=== PATIENT | male | born 1965 | race Caucasian/White ===

== ENCOUNTER 2018-02-10 01:48 | Inpatient (IN) | payer OTHER ==
[~2018-02-10] VITALS: Ht 172.7 cm; Wt 105.5 kg
[~2018-02-10 01:48] MED LIST: CITA-48 PO; D-10TAB3 PO; HYDR-2768 PO; PALI156P IM; TRAZ100 PO
[2018-02-10 03:05] VITALS: BP 169/97; PULSE 86; RESP 18; TEMP 98.8; O2SAT 98
[2018-02-10] MEDS ORDERED: diphenhydrAMINE HCL 50 MG/ML VIAL - HS PRN IM (04:45)
[2018-02-10] MEDS ORDERED: diphenhydrAMINE HCL 50 MG CAP - HS PRN PO (04:45)
[2018-02-10] MEDS ORDERED: ALUMINUM/MAGNESIUM/SIMETH 30 ML CUP PO PRN (04:45)
[2018-02-10] MEDS ORDERED: hydrOXYzine HCL 50 MG TAB PO PRN (04:45)
[2018-02-10] MEDS ORDERED: MAGNESIUM HYDROXIDE SUSP 30 ML CUP PO PRN (04:45)
[2018-02-10] MEDS: NICOTINE 21 MG/24 HR PATCH T-DERMAL SCH (09:00)
[2018-02-10 11:03] LABS: BICARBONATE 26.6 MEQ/L (21.0-32.0); BLOOD UREA NITROGEN 14 MG/DL (7-18); CALCIUM 9.3 MG/DL (8.5-10.1); CHLORIDE 105 MEQ/L (98-107); CHOLESTEROL 187 MG/DL (120-200); CREATININE 0.98 MG/DL (0.60-1.30); GLOMERULAR FILTRATION RATE 81 ML/MIN (>89); GLUCOSE,RANDOM 113 MG/DL (74-106); SODIUM (NA) 139 MEQ/L (136-145)
[2018-02-10 11:07] LABS: CHOLESTEROL/ HDL RATIO 5.35 RATIO; HDL CHOLESTEROL 34.9 MG/DL (40.0-60.0); LDL CHOLESTEROL 108 MG/DL (0-99); TRIGLYCERIDES 223 MG/DL (42-150)
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
[2018-02-10 14:00] LABS: HEMOGLOBIN A1C 5.4 % (4.3-6.0)
--- NOTE | 2018-02-10 16:23 | PD.CONS ---
HPI Service [facility] Hospitalists Consult Requested By Psychiatric services Reason for Consult Medical management Primary Care Physician [facility] Diagnoses: History of Present Illness This is a 52-year-old male with a past medical history significant for hypertension, bipolar disorder, schizoaffective disorder and PTSD who was admitted to the inpatient psychiatric unit as a transfer from [facility] under Garcia act secondary to suicidal ideation with plan to either overdose on pills or poison himself with carbon monoxide. Hospitalist services have been consulted for medical management. Patient seen and examined. Patient has complaints of mild swelling and discomfort in the left eye that he states is secondary to a stye infection which he gets occasionally. He denies any vision changes. He denies any associated itching, pain or drainage He denies any fever or chills. Denies any chest pain or shortness of breath. Denies any nausea, vomiting or abdominal pain. He denies any urinary difficulties. He denies any diarrhea, constipation, melena or hematochezia. Review of Systems Except as stated in HPI: all other systems reviewed are Neg Past Family Social History Allergies: Coded Allergies: No Known Allergies (Verified , 01/14/14) Past Medical History Hypertension Bipolar disorder Schizoaffective disorder PTSD Past Surgical History Lumbar surgery 2 Reported Medications Invega Sustenna (Paliperidone Palmitate) 156 Mg/Ml Inj 156 Mg IM Q28D *FOR INTRAMUSCULAR USE ONLY* Trazodone Hcl (Trazodone HCl) 100 Mg Tab 200 Mg PO HS PRN Hctz (Hydrochlorothiazide) 25 Mg Tab 37.5 Mg PO DAILY TAKE 1 AND 1/2 TABS IN THE MORNING Citalopram Hydrobromide 40 Mg Tab 40 Mg PO DAILY D-1000 Extra Strength (Cholecalciferol) Tab 2 PO DAILY Active Ordered Medications Current Medications Medications (Trade) Dose Ordered Sig/Chanda Route Start Time Stop Time Status Last Admin (Tylenol) 650 mg Q4H PRN PO 02/10/18 04:45 (Milk Of Magnesia Liq) 30 ml DAILY PRN PO 02/10/18 04:45 (Mag-Al Plus Susp Liq) 30 ml Q6H PRN PO 02/10/18 04:45 (Habitrol 21 Mg Patch.24 Hr) 1 patch DAILY T-DERMAL 02/10/18 09:00 Miscellaneous Information 1 HS T-DERMAL 02/10/18 21:00 (Depakote Er) 1,500 mg HS PO 02/10/18 21:00 (Lithotabs) 300 mg DAILY PO 02/11/18 09:00 ([place] Carbonate) 600 mg HS PO 02/10/18 21:00 (Wellbutrin Sr) 150 mg DAILY PO 02/11/18 09:00 (Desyrel) 200 mg HS PO 02/10/18 21:00 Family History Mother, bipolar disorder Social History Patient reports tobacco use of a pack per day since the age of 17. He denies any alcohol consumption or illicit drug use. Physical Exam Vital Signs Vital Signs Date Time Temp Pulse Resp B/P (MAP) Pulse Ox O2 Delivery O2 Flow Rate FiO2 02/10/18 03:05 98.8 86 18 169/97 (121) 98 Physical Exam GENERAL: This is a well-nourished, well-developed male patient, in no apparent distress. Asleep but easily arousable to voice. Pleasant and calm. SKIN: No rashes, ecchymoses or lesions. Cool and dry. HEAD: Atraumatic. Normocephalic. No temporal or scalp tenderness. EYES: Pupils equal round and reactive. Extraocular motions intact. No scleral icterus. Mild edema noted left eye with conjunctival irritation. ENT: Nose without bleeding or purulent drainage. Throat without erythema, tonsillar hypertrophy or exudate. Uvula midline. Airway patent. NECK: Trachea midline. No lymphadenopathy. Supple, nontender, no meningeal signs. CARDIOVASCULAR: Regular rate and rhythm without murmurs, gallops, or rubs. RESPIRATORY: Clear to auscultation. Breath sounds equal bilaterally. No wheezes , rales, or rhonchi. GASTROINTESTINAL: Abdomen soft, non-tender, nondistended. No hepato-splenomegaly , or palpable masses. No guarding. MUSCULOSKELETAL: Extremities without clubbing or cyanosis. Trace BLE edema. No joint tenderness, effusion, or edema noted. No calf tenderness. NEUROLOGICAL: Awake and alert. Cranial nerves II through XII grossly intact. Motor and sensory grossly within normal limits. No focal neurologic findings appreciated. Normal speech. Laboratory Laboratory Tests Test 02/10/18 09:20 Blood Urea Nitrogen 14 Creatinine 0.98 Random Glucose 113 Calcium Level 9.3 Sodium Level 139 Potassium Level 4.2 Chloride Level 105 Carbon Dioxide Level 26.6 Anion Gap 7 Estimat Glomerular Filtration Rate 81 Hemoglobin A1c 5.4 Triglycerides Level 223 Cholesterol Level 187 LDL Cholesterol 108 HDL Cholesterol 34.9 Cholesterol/HDL Ratio 5.35 Valproic Acid (Depakene) Level 31 [place] Level 0.5 Result Diagram: 02/10/18 0920 Assessment and Plan Assessment and Plan 52-year-old male with a past medical history significant for hypertension, bipolar disorder, schizoaffective disorder and PTSD who was admitted to the inpatient psychiatric unit as a transfer from [facility] under Garcia act secondary to suicidal ideation with plan to either overdose on pills or poison himself with carbon monoxide. Hospitalist services have been consulted for medical management. Bipolar disorder Schizoaffective disorder PTSD Suicidal ideation -Management per psychiatric team Hypertension, not well controlled -Begin Norvasc 5 mg daily. Requested nursing staff update medication reconciliation. -Clonidine when necessary with parameters -Continue to monitor BP and adjust treatment accordingly Left eye stye -warm compresses 15mins on 4x/day -monitor Hypertriglyceridemia -Triglyceride level 223 -Discussed with patient starting statin therapy and patient is agreeable -Obtain LFT levels. If within normal limits, recommend beginning statin therapy -[facility]8 [facility] as well as monitor his LFTs Tobaccoism -Discussed smoking cessation -Offered patient nicotine patch but he declined DVT prophylaxis -Patient is ambulatory Thank you very kindly for this consultation. We'll continue to follow patient along with you. Discussed Condition With patient, nursing staff Tamia Means Feb 10, 2018 16:23
[2018-02-10] MEDS ORDERED: cloNIDine HCL 0.1 MG TAB PO PRN (16:30)
[2018-02-10] MEDS ORDERED: amLODIPine BESYLATE 5 MG TAB PO ONE (16:30)
[2018-02-10 16:54] LABS: DIRECT BILIRUBIN ADULT 0.1 MG/DL (0.0-0.2)
[2018-02-10 16:57] LABS: INDIRECT BILIRUBIN 0.4 MG/DL (0.0-0.8); TOTAL BILIRUBIN ADULT 0.5 MG/DL (0.2-1.0); TOTAL PROTEIN 7.8 GM/DL (6.4-8.2)
[2018-02-10 17:41] VITALS: BP 171/93; PULSE 85; RESP 18; TEMP 97.7; O2SAT 99
[2018-02-10] MEDS: REMOVE OLD NICOTINE PATCH T-DERMAL SCH (21:00)
[2018-02-10] MEDS: LITHIUM CARBONATE 300 MG CAP PO SCH (21:00)
[2018-02-10] MEDS: traZODone HCL 100 MG TAB PO SCH (21:00)
[2018-02-10] MEDS: DIVALPROEX SODIUM E.R. 500 MG TAB PO SCH (21:00)
[2018-02-11 05:12] VITALS: BP 137/78; PULSE 81; RESP 18; TEMP 98; O2SAT 99
[2018-02-11] MEDS: NICOTINE 21 MG/24 HR PATCH T-DERMAL SCH (09:00)
[2018-02-11] MEDS: amLODIPine BESYLATE 5 MG TAB PO SCH (09:00)
[2018-02-11] MEDS: buPROPion HCL 150 MG SUSTAINED RELEASE TAB PO SCH (09:21)
[2018-02-11] MEDS: LITHIUM CARBONATE 300 MG TAB PO SCH (09:22)
--- NOTE | 2018-02-11 10:58 | HHI.PYPN ---
Subjective Chief Complaint: suicidal ideation Remarks Patient was seen and case discussed with nursing. Patient is complaining of nightmares last night. He told nursing last night he had suicidal ideation but denies having some with my interview. Describes various stressors such as his relationship with his son. Affect is blunted. Mood remains depressed. Has auditory visual hallucinations Mental Status Examination Appearance: Appropriate Consciousness: Alert Orientation: x4 Motor Activity: Normal gait Speech: Unremarkable Language: Adequate Fund of Knowledge: Adequate Attention and Concentration: Adequate Memory: Unremarkable Mood: Sad Affect: Blunt Thought Process & Associations: Intact, Logical, Linear Thought Content: Appropriate Hallucination Type: None Delusion Type: None Suicidal Ideation: No Suicidal Plan: No Suicidal Intention: No Homicidal Ideation: No Homicidal Plan: No Homicidal Intention: No Insight: Adequate Judgment: Adequate Results Vitals/IOs Vital Signs Date Time Temp Pulse Resp B/P (MAP) Pulse Ox O2 Delivery O2 Flow Rate FiO2 02/11/18 05:12 98.0 81 18 137/78 (97) 99 Intake and Output 02/11/18 02/11/18 02/12/18 08:00 16:00 00:00 Intake Total 240 ml Balance 240 ml Assessment & Plan Problem List: (1) Bipolar 1 disorder, depressed, mild ICD Codes: F31.31 - Bipolar disorder, current episode depressed, mild Assessment & Plan Continue current treatment plan Justification for Cont. Inpt. Patient will decompensate in a less restrictive setting Request HC Surrog/Guard Advoc?: No Andrey Braun DO Feb 11, 2018 10:58
--- NOTE | 2018-02-11 11:18 | HHI.PR ---
Subjective Remarks Follow up on patient with HTN, eye lesion. Patient seen and examined. Patient states his eye feels better. Denies any complaints of vision changes, eye pain , tearing or itchiness. Denies any fever or chills. Denies any chest pain or shortness of breath. Denies any nausea, vomiting or abdominal pain. States he is urinating well. Denies any diarrhea or constipation. Objective Vitals Vital Signs Date Time Temp Pulse Resp B/P (MAP) Pulse Ox O2 Delivery O2 Flow Rate FiO2 02/11/18 05:12 98.0 81 18 137/78 (97) 99 02/10/18 17:41 97.7 85 18 171/93 (119) 99 I/O 02/10/18 02/10/18 02/10/18 02/11/18 02/11/18 02/11/18 07:00 15:00 23:00 07:00 15:00 23:00 Intake Total 240 ml Balance 240 ml Intake Oral 240 ml Result Diagram: 02/10/18 0920 Objective Remarks GENERAL: This is a well-nourished, well-developed male patient, in no apparent distress. Awake and alert. Witnessed ambulating in the unit without any difficulty. SKIN: Cool and dry. HEAD: Atraumatic. Normocephalic. EYES: Extraocular motions intact. No scleral icterus. Nodular lesion noted left upper eyelid, no evidence of infection. ENT: Nose without bleeding or purulent drainage. Airway patent. MMM. NECK: Trachea midline. CARDIOVASCULAR: Regular rate and rhythm without murmurs, gallops, or rubs. RESPIRATORY: Clear to auscultation. Breath sounds equal bilaterally. No wheezes , rales, or rhonchi. GASTROINTESTINAL: Abdomen soft, non-tender, nondistended. MUSCULOSKELETAL: Extremities without clubbing or cyanosis. Trace BLE edema. NEUROLOGICAL: Awake and alert. Cranial nerves II through XII grossly intact. Motor and sensory grossly within normal limits. No focal neurologic findings appreciated. Normal speech. PSYCHIATRIC: Appropriate mood and affect. Normal insight and judgment. Medications and IVs Current Medications Medications (Trade) Dose Ordered Sig/Chanda Route Start Time Stop Time Status Last Admin (Tylenol) 650 mg Q4H PRN PO 02/10/18 04:45 (Milk Of Magnesia Liq) 30 ml DAILY PRN PO 02/10/18 04:45 (Mag-Al Plus Susp Liq) 30 ml Q6H PRN PO 02/10/18 04:45 (Habitrol 21 Mg Patch.24 Hr) 1 patch DAILY T-DERMAL 02/10/18 09:00 Miscellaneous Information 1 HS T-DERMAL 02/10/18 21:00 (Depakote Er) 1,500 mg HS PO 02/10/18 21:00 02/10/18 21:00 (Lithotabs) 300 mg DAILY PO 02/11/18 09:00 02/11/18 09:22 ([place] Carbonate) 600 mg HS PO 02/10/18 21:00 02/10/18 21:00 (Wellbutrin Sr) 150 mg DAILY PO 02/11/18 09:00 02/11/18 09:21 (Desyrel) 200 mg HS PO 02/10/18 21:00 02/10/18 21:00 (Catapres) 0.1 mg Q6H PRN PO 02/10/18 16:30 (Norvasc) 5 mg DAILY PO 02/11/18 09:00 02/11/18 09:00 (Lipitor) 40 mg DAILY PO 02/12/18 09:00 (Benadryl) 50 mg HS PRN PO 02/11/18 21:00 A/P Assessment and Plan 52-year-old male with a past medical history significant for hypertension, bipolar disorder, schizoaffective disorder and PTSD who was admitted to the inpatient psychiatric unit as a transfer from [facility] under Garcia act secondary to suicidal ideation with plan to either overdose on pills or poison himself with carbon monoxide. Hospitalist services have been consulted for medical management. Bipolar disorder Schizoaffective disorder PTSD Suicidal ideation -Management per psychiatric team Hypertension -BP better controlled since beginning Norvasc 5 mg daily, continue -medication reconciliation pending, discussed with nursing staff -Clonidine when necessary with parameters -Continue to monitor BP and adjust treatment accordingly Left eye lesion, suspect chalazion -No evidence of infection, asymptomatic -warm compresses 15mins on 4x/day -Patient may want to follow up with leather softener as outpatient for possible treatment options Hypertriglyceridemia -Triglyceride level 223 -Discussed with patient starting statin therapy and patient is agreeable -LFTs within normal limits. Begin Lipitor 40 mg daily. -Patiently to follow-up with his PCP at the [facility] to repeat lipid profile in 6- 8 weeks as well as monitor his LFTs Tobaccoism -Discussed smoking cessation -Offered patient nicotine patch but he declined DVT prophylaxis -Patient is ambulatory Patient appears stable from hospitalist standpoint. Will sign off for now. Please reconsult if needed. Tamia Means Feb 11, 2018 11:18
[2018-02-11 17:03] VITALS: BP 137/78; PULSE 81; RESP 18; TEMP 98; O2SAT 97
[2018-02-11] MEDS: ACETAMINOPHEN 325 MG TAB PO PRN (17:49)
[2018-02-11 18:29] VITALS: BP 162/90; PULSE 90; RESP 16; TEMP 98.4; O2SAT 96
[2018-02-11] MEDS: LITHIUM CARBONATE 300 MG CAP PO SCH (20:59)
[2018-02-11] MEDS ORDERED: diphenhydrAMINE HCL 50 MG CAP PO PRN (21:00)
[2018-02-11] MEDS: REMOVE OLD NICOTINE PATCH T-DERMAL SCH (21:00)
[2018-02-11] MEDS: DIVALPROEX SODIUM E.R. 500 MG TAB PO SCH (21:00)
[2018-02-11] MEDS: traZODone HCL 100 MG TAB PO SCH (21:00)
[2018-02-11 22:23] VITALS: BP 117/58; PULSE 73; RESP 17; TEMP 98.2; O2SAT 93
[2018-02-12 06:30] VITALS: BP 110/62; PULSE 71; RESP 18; TEMP 98.1; O2SAT 99
[2018-02-12] MEDS: NICOTINE 21 MG/24 HR PATCH T-DERMAL SCH (09:00)
[2018-02-12] MEDS: buPROPion HCL 150 MG SUSTAINED RELEASE TAB PO SCH (09:08)
[2018-02-12] MEDS: ATORVASTATIN 40 MG TAB PO SCH (09:09)
[2018-02-12] MEDS: LITHIUM CARBONATE 300 MG TAB PO SCH (09:09)
[2018-02-12] MEDS: amLODIPine BESYLATE 5 MG TAB PO SCH (09:09)
--- NOTE | 2018-02-12 17:03 | HHI.PYPN ---
Subjective Chief Complaint: suicidal ideation Remarks Patient seen for follow, chart reviewed. Discussion nursing staff reported the patient has been pleasant, social, denies any perception disturbances recently. Patient was found him lying on the unit noted B, cooperative. Patient states that he was brought in under Garcia act due to having suicide ideations which he states have began a couple of days ago along with feeling depressed recently after having been off his medications for a couple of days as well as being stressed about financial difficulties to pay for her son's college. Patient states that he has had auditory hallucinations in the past last time being 1 week ago but had received his monthly long-acting injectable of Abilify Maintenna her last Monday 400 mg IM. Patient states he has not had recurrence of these hallucinations recently. Patient states that he is feeling much better although less depressed denying suicide ideations today. Patient states that he spoke with his fiance over the weekend which went well. Patient states he has an outpatient provider Dr. Tamez who he follows up with. Patient reports having difficulty with sleep last night stating that he is having nightmares and unable to have affective response from trazodone. Review of Systems Except as stated in HPI: all other systems reviewed are Neg Mental Status Examination Appearance: Appropriate Consciousness: Alert Orientation: x4 Motor Activity: Normal gait Speech: Unremarkable Language: Adequate Fund of Knowledge: Adequate Attention and Concentration: Adequate Memory: Unremarkable Mood: Sad Affect: Blunt Thought Process & Associations: Intact, Logical, Linear Thought Content: Appropriate Hallucination Type: None Delusion Type: None Suicidal Ideation: Yes (Denies today) Suicidal Plan: No Suicidal Intention: No Homicidal Ideation: No Homicidal Plan: No Homicidal Intention: No Insight: Adequate Judgment: Adequate Results Labs Labs reviewed Test 02/11/18 19:55 Valproic Acid (Depakene) Level 30 MCG/ML [place] Level 0.5 MEQ/L Vitals/IOs Vital Signs Date Time Temp Pulse Resp B/P (MAP) Pulse Ox O2 Delivery O2 Flow Rate FiO2 02/12/18 06:30 98.1 71 18 110/62 (78) 99 Assessment & Plan Problem List: (1) Bipolar 1 disorder, depressed, mild ICD Codes: F31.31 - Bipolar disorder, current episode depressed, mild Assessment & Plan Patient reports having less depression recently denying any suicide ideations. Patient has not resurgence of auditory hallucinations. Patient's recent Depakote level was subtherapeutic although was taken to assess the patient was restarted on medications and therefore may not be an accurate result the dose. We will wait until 4 5 half-lives of medications to draw repeat labs to have a more accurate result. We will order VPA level for 02/14/18. Continue rest of medications. Continue monitor with behavior. We will discontinued trazodone and start zolpidem 5 mg p.o. at bedtime for sleep disturbance. Discharge planning in progress Justification for Cont. Inpt. At risk for further decompensation at lower level of care. Discharge Planning Patient return back to his residence when psychiatrically stable. Request HC Surrog/Guard Advoc?: No Neftaly Travis MD Feb 12, 2018 17:03
[2018-02-12 17:47] VITALS: BP 156/97; PULSE 103; RESP 18; TEMP 98.4; O2SAT 98
[2018-02-12] MEDS: REMOVE OLD NICOTINE PATCH T-DERMAL SCH (20:34)
[2018-02-12] MEDS: LITHIUM CARBONATE 300 MG CAP PO SCH (20:34)
[2018-02-12] MEDS: DIVALPROEX SODIUM E.R. 500 MG TAB PO SCH (20:34)
[2018-02-12] MEDS ORDERED: ZOLPIDEM TARTRATE 5 MG TAB PO SCH (21:00)
[2018-02-13 06:04] VITALS: BP 141/80; PULSE 74; RESP 18; TEMP 98.2; O2SAT 98
[2018-02-13] MEDS: LITHIUM CARBONATE 300 MG TAB PO SCH (08:02)
[2018-02-13] MEDS: buPROPion HCL 150 MG SUSTAINED RELEASE TAB PO SCH (08:03)
[2018-02-13] MEDS: amLODIPine BESYLATE 5 MG TAB PO SCH (08:03)
[2018-02-13] MEDS: NICOTINE 21 MG/24 HR PATCH T-DERMAL SCH (08:03)
[2018-02-13] MEDS: ATORVASTATIN 40 MG TAB PO SCH (08:03)
[2018-02-13] MEDS: ACETAMINOPHEN 325 MG TAB PO PRN ×2 (08:05→15:29)
--- NOTE | 2018-02-13 14:18 | HHI.PYPN ---
Subjective Chief Complaint: suicidal ideation Remarks Patient seen for follow, chart reviewed. Discussion nursing staff reported the patient had visited with [place] and that she had mentioned that she had noticed that with elevated mood. Patient was found persuading groups B, cooperative. Patient mentions that he is feeling "good" reports having slept a little better last evening but continuing to have some disturbed sleep. Patient states his depression has lessened and that he is denying any suicide ideations or perceptual disturbances at this time. Patient aware that he will have blood draw tomorrow morning to assess Depakote level. Review of Systems Except as stated in HPI: all other systems reviewed are Neg Mental Status Examination Appearance: Appropriate Consciousness: Alert Orientation: x4 Motor Activity: Normal gait Speech: Unremarkable Language: Adequate Fund of Knowledge: Adequate Attention and Concentration: Adequate Memory: Unremarkable Mood: Sad (Less today.) Affect: Appropriate Thought Process & Associations: Intact, Logical, Linear Thought Content: Appropriate Hallucination Type: None Delusion Type: None Suicidal Ideation: Yes (Denies today) Suicidal Plan: No Suicidal Intention: No Homicidal Ideation: No Homicidal Plan: No Homicidal Intention: No Insight: Adequate Judgment: Adequate Results Vitals/IOs Vital Signs Date Time Temp Pulse Resp B/P (MAP) Pulse Ox O2 Delivery O2 Flow Rate FiO2 02/13/18 06:04 98.2 74 18 141/80 (100) 98 Assessment & Plan Problem List: (1) Bipolar 1 disorder, depressed, mild ICD Codes: F31.31 - Bipolar disorder, current episode depressed, mild Assessment & Plan Patient this time has noted to have any manic clinical features, no pressured speech, able to engage in conversation appropriately. Patient states he is feeling less depressed today denying any suicide ideations. Patient continues to have disturbed sleep therefore will increase zolpidem to 10 mg p.o. at bedtime, continue rest of medications. Patient's valproic acid level scheduled for tomorrow morning a.m. for level. Continue to monitor with behavior. Discharge planning in progress. Justification for Cont. Inpt. At risk for further decompensation if at lower level of care Discharge Planning Patient return back to his residence was psychiatrically stable. Request HC Surrog/Guard Advoc?: No Neftaly Travis MD Feb 13, 2018 14:18
[2018-02-13 18:32] VITALS: BP_SYST 102; BP_SYST 127; BP_DIAS 57; BP_DIAS 78; PULSE 56; PULSE 86; RESP 17; RESP 18; TEMP 97.2; TEMP 98.4; O2SAT 98; O2SAT 99
[2018-02-13] MEDS: LITHIUM CARBONATE 300 MG CAP PO SCH (20:34)
[2018-02-13] MEDS: DIVALPROEX SODIUM E.R. 500 MG TAB PO SCH (20:35)
[2018-02-13] MEDS: REMOVE OLD NICOTINE PATCH T-DERMAL SCH (20:35)
[2018-02-13] MEDS ORDERED: ZOLPIDEM TARTRATE 10 MG TAB PO SCH (21:00)
[2018-02-13 21:15] VITALS: BP 147/93; PULSE 86; RESP 16; TEMP 98.2; O2SAT 98
[2018-02-14 01:00] VITALS: BP 169/95; PULSE 82; RESP 16; TEMP 97.8; O2SAT 98
[2018-02-14 05:49] VITALS: BP 156/81; PULSE 81; RESP 18; TEMP 97.8; O2SAT 98
[2018-02-14] MEDS: ATORVASTATIN 40 MG TAB PO SCH (10:11)
[2018-02-14] MEDS: buPROPion HCL 150 MG SUSTAINED RELEASE TAB PO SCH (10:11)
[2018-02-14] MEDS: amLODIPine BESYLATE 5 MG TAB PO SCH (10:12)
[2018-02-14] MEDS: LITHIUM CARBONATE 300 MG TAB PO SCH (10:12)
[2018-02-14] MEDS ORDERED: AMLO5 PO (12:09)
[2018-02-14] MEDS ORDERED: ATOR40TA16 PO (12:09)
[2018-02-14] MEDS ORDERED: LITH300T3 PO (12:09)
[2018-02-14] MEDS ORDERED: DEPA500T3 PO (12:09)
[2018-02-14] MEDS ORDERED: BUPR150CR PO (12:09)
[2018-02-14] MEDS ORDERED: LITH600C PO (12:09)
[2018-02-14] MEDS ORDERED: AMBI10TA PO (12:09)
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
== END 2018-02-14 16:25 | disposition home or self-care (01) | DRG 885 ==
LOC: H270 03:05 → H260 14:55
PROVIDERS: ADMIT Student in an Organized Health Care Education/Training Program; ATTEND Student in an Organized Health Care Education/Training Program
DX: F31.31 Bipolar disorder, current episode depressed, mild (principal); I10 Essential (primary) hypertension; Z81.8 Family history of other mental and behavioral disorders; Z62.810 Personal history of physical and sexual abuse in childhood; F17.200 Nicotine dependence, unspecified, uncomplicated; H00.16 Chalazion left eye, unspecified eyelid; E78.1 Pure hyperglyceridemia
CPT/HCPCS: 80048; 80061; 80076; 80164; 80178; 83036; Q0163